=== PATIENT | male | born 1985 | race Caucasian/White ===

== ENCOUNTER 2019-01-09 22:54 | Emergency (ER) | payer OTHER ==
[~2019-01-09] VITALS: Ht 167.6 cm; Wt 67.6 kg
[2019-01-09 22:58] VITALS: BP_SYST 120
[2019-01-09] MEDS ORDERED: IPRATROPIUM/ALBUTEROL SULFATE 3 ML AMPUL.NEB (DUONEB) INH ONE (23:30)
[2019-01-09] MEDS ORDERED: AMOXICILLIN 500 MG CAPSULE PO ONE (23:45)
[2019-01-10 00:10] VITALS: BP_SYST 110
== END 2019-01-10 00:10 ==
LOC: SED 22:54
DX: J18.9 Pneumonia, unspecified organism (principal)
CPT/HCPCS: 71045; 94640; 99283; J7620

== ENCOUNTER 2019-04-07 03:23 | Emergency (ER) | payer MEDICAID, OTHER ==
[~2019-04-07] VITALS: Ht 167.6 cm; Wt 81.6 kg
[2019-04-07 03:30] VITALS: BP_SYST 143
[2019-04-07] MEDS ORDERED: IBUPROFEN 600 MG TABLET PO ONE (03:45)
[2019-04-07 04:10] VITALS: BP_SYST 143
== END 2019-04-07 04:10 ==
LOC: SED 03:23
DX: S29.012A Strain of muscle and tendon of back wall of thorax, initial encounter (principal); I10 Essential (primary) hypertension; X58.XXXA Exposure to other specified factors, initial encounter; Y93.89 Activity, other specified; Y92.89 Other specified places as the place of occurrence of the external cause; Y99.8 Other external cause status
CPT/HCPCS: 99283

== ENCOUNTER 2019-10-06 03:04 | Emergency (ER) | payer MEDICAID ==
[~2019-10-06] VITALS: Ht 167.6 cm; Wt 72.6 kg
[2019-10-06 03:17] VITALS: BP_SYST 130
--- NOTE | 2019-10-06 03:17 | NUR ---
Patient to ER CHAIR to gown for evaluation. Side rails up.
--- NOTE | 2019-10-06 03:18 | NUR ---
ER at bedside examining patient.
--- NOTE | 2019-10-06 04:17 | NUR ---
Patient given written and verbal discharge instructions and verbalizes understanding. ER MD discussed with patient the results and treatment provided. Patient in stable condition. ID arm band removed. no Rx of given. Patient educated on pain management and to follow up with PMD. Pain Scale 0/10. Opportunity for questions provided and answered. Medication side effect fact sheet provided.
[2019-10-06 04:18] VITALS: BP_SYST 128
== END 2019-10-06 04:18 ==
LOC: SED 03:04
DX: Z02.89 Encounter for other administrative examinations (principal)
CPT/HCPCS: 99283